=== PATIENT | female | born 1965 | race Caucasian/White ===

== ENCOUNTER 2023-11-25 18:16 | Emergency (ER) | payer OTHER, SELFPAY ==
[2023-11-25 18:18] VITALS: BP 157/104
[2023-11-25 18:55] LABS: % Basophils 0.5 % (0-2); % Eosinophils 2.3 % (0-6); % Immature Granulocytes 0.4 % (0-0.5); % Lymphocytes 22.4 % (20.5-51.1); % Monocytes 4.5 % (1.7-9.3); % Neutrophils 69.9 % (42.2-75.2); Absolute Basophils 0.1 10^3/uL (0-0.2); Absolute Eosinophils 0.3 10^3/uL (0-0.7); Absolute Immature Granulocytes 0.1 10^3/uL (0-0.05); Absolute Lymphocytes 2.7 10^3/uL (1.2-3.4); Absolute Monocytes 0.5 10^3/uL (0.1-0.6); Absolute Neutrophils 8.4 10^3/uL (1.4-6.5); Hematocrit 38.1 % (37.0-47.0); Hemoglobin 13.2 g/dL (12.0-16.0); Mean Corp Hgb Conc. 34.6 g/dL (33.0-37.0); Mean Corpuscular Hgb 29.9 pg (27.0-31.0); Mean Corpuscular Volume 86.2 fL (81.0-99.0); Mean Platelet Volume 10.3 fL (7.4-10.4); Nucleated Red Blood Cells % 0 %; Platelet Count 236 10^3/uL (130-400); Red Blood Cell Count 4.42 10^6/uL (4.20-5.40); Red Cell Dist. Width 12.3 % (11.5-14.5)
[2023-11-25 19:08] LABS: ALT (SGPT) 33 U/L (0-35); AST (SGOT) 33 U/L (14-36); Albumin 4.4 g/dl (3.5-5.0); Alkaline Phosphatase 100 U/L (38-126); Blood Urea Nitrogen 17 mg/dl (7-17); Calcium 9.8 mg/dl (8.4-10.2); Carbon Dioxide 28 mmol/L (22-30); Chloride 100 mmol/L (98-107); Glucose 215 mg/dl (70-99); Lipase 870 U/L (23-300); Potassium 5.1 mmol/L (3.5-5.1); Sodium 133 mmol/L (135-145); Total Bilirubin 0.7 mg/dl (0.2-1.3); Total Protein 7.4 g/dl (6.3-8.2); eGFR > 60.00
[2023-11-25 19:19] LABS: Troponin I < 0.012 ng/ml
[2023-11-25 20:53] VITALS: BP 124/93
[2023-11-25] MEDS: ZOFRAN 4 MG IV (21:25)
[2023-11-25] MEDS: DILAUDID 0.5 MG IV (21:26)
--- NOTE | 2023-11-25 21:37 | ED.GENMED ---
History of Present Illness
<Donavon Augustin, DO - Last Filed: 11/25/23 21:42>
General
Chief Complaint: Abdominal Pain
Source: patient, records and spouse
Exam Limitations: none
Time Seen by Provider: 11/25/23 20:49
Nursing documentation reviewed up to this point in time: agreed with
Travel History
Have you had any contact with someone who has COVID-19?: No
Do you have any symptoms of coronavirus? Fever > 100 degrees, chills, cough, shortness of breath, sore throat, loss of taste or smell, muscle aches, or headache?: No
History of Present Illness
History of Present Illness:
58-year-old female mid upper abdominal pain acute on chronic issue she states is somewhat reminiscent of her reflux and upper endoscopy has been on a PPI symptoms are worse with sitting forward and eating feels like she needs to belch, still has her
gallbladder, she has had pelvic surgery previously, no chest pain or shortness of breath
Past History
<Donavon Augustin, DO - Last Filed: 11/25/23 21:42>
Past History
ED Past Medical History: HTN, Hypercholesterolemia, IDDM and Other (Overactive bladder)
ED Past Surgical History: Gynecological (Bladder lift)
Social History
Tobacco: Non-smoker
Alcohol: None
Personal:
Living: with family
Employment: Employed
Family History
Family History: CAD (Father at 73 of [place]) and Cancer (Mom at age 71 of pancreatic cancer); Negative Early CAD or Sudden
Review of Systems
<Donavon Augustin, DO - Last Filed: 11/25/23 21:42>
Review of Systems
All Other Systems: Not applicable
Constitutional: Denies fever or fatigue
EENT: Reports no symptoms
Respiratory: Reports no symptoms
Cardiac: Reports no symptoms
ABD/GI: Reports abdominal pain
Phy Exam
<Donavon Augustin, DO - Last Filed: 11/25/23 21:42>
Physical Exam
Physical Exam:
Physical Exam
General: 50 is female looks uncomfortable
Neck: No jaundice
Heart: s1/s2 regular rate and rhythm, no murmur. equal radial pulses.
Lungs: no acute respiratory distress
Abdomen: Obese tender in the right upper abdomen
Neuro: alert and oriented. no focal neurological deficits
Skin: no rash
Psychiatric: well kept. interactive and cooperative
Extremities: no edema.
Course
<Donavon Augustin, DO - Last Filed: 11/25/23 21:42>
Orders/Labs/Results
Orders:
Orders
11/25/23 18:22
ECG [Electrocardiogram (*1)] Urgent
Reason for Study: Abdominal Pain
ECG [Electrocardiogram (*1)] Urgent
Reason for Study: Abdominal Pain
EKG- Treatment ONCE
11/25/23 18:31
Complete Blood Count/With Diff Urgent
Comprehensive Metabolic Panel Urgent
Lipase Urgent
Troponin I Urgent
11/25/23 21:09
HYDROmorphone [Dilaudid] 0.5 mg IV NOW STA
Ondansetron Injectable [Zofran] 4 mg IV NOW STA
US Abdomen Complete/Upper Urgent
Comment:
Reason For Exam: pain
11/25/23 23:14
CT Abd/pelvis W Iv Cont Urgent
Comment:
Reason For Exam: pian lipase elevated
11/25/23 23:15
Pantoprazole [Protonix IV] 40 mg IV NOW STA
Abnormal Lab Results
11/25/23
18:31
WBC 12.0 H 10^3/uL
(4.8-10.8)
Abs Immat Gran (auto) 0.1 H 10^3/uL
(0-0.05)
Absolute Neuts (auto) 8.4 H 10^3/uL
(1.4-6.5)
Sodium 133 L mmol/L
(135-145)
Glucose 215 H mg/dl
(70-99)
Lipase 870 H U/L
(23-300)
11/25/23 18:31
11/25/23 18:31
Vital Signs
Initial and Last Documented VS:
Initial Vital Signs
Temp Pulse Resp BP Pulse Ox
98.0 F 53 20 157/104 99
11/25/23 18:18 11/25/23 18:18 11/25/23 18:18 11/25/23 18:18 11/25/23 18:18
Last Documented Vital Signs
Temp Pulse Resp BP Pulse Ox
98.0 F 91 16 124/84 95
11/25/23 18:18 11/25/23 22:29 11/25/23 22:29 11/25/23 22:29 11/25/23 22:29
<KOLE Andino - Last Filed: 11/26/23 01:16>
Orders/Labs/Results
Orders:
Orders
11/25/23 18:22
ECG [Electrocardiogram (*1)] Urgent
Reason for Study: Abdominal Pain
ECG [Electrocardiogram (*1)] Urgent
Reason for Study: Abdominal Pain
EKG- Treatment ONCE
11/25/23 18:31
Complete Blood Count/With Diff Urgent
Comprehensive Metabolic Panel Urgent
Lipase Urgent
Troponin I Urgent
11/25/23 21:09
HYDROmorphone [Dilaudid] 0.5 mg IV NOW STA
Ondansetron Injectable [Zofran] 4 mg IV NOW STA
US Abdomen Complete/Upper Urgent
Comment:
Reason For Exam: pain
11/25/23 23:14
CT Abd/pelvis W Iv Cont Urgent
Comment:
Reason For Exam: pian lipase elevated
11/25/23 23:15
Pantoprazole [Protonix IV] 40 mg IV NOW STA
Abnormal Lab Results
11/25/23
18:31
WBC 12.0 H 10^3/uL
(4.8-10.8)
Abs Immat Gran (auto) 0.1 H 10^3/uL
(0-0.05)
Absolute Neuts (auto) 8.4 H 10^3/uL
(1.4-6.5)
Sodium 133 L mmol/L
(135-145)
Glucose 215 H mg/dl
(70-99)
Lipase 870 H U/L
(23-300)
11/25/23 18:31
11/25/23 18:31
Vital Signs
Initial and Last Documented VS:
Initial Vital Signs
Temp Pulse Resp BP Pulse Ox
98.0 F 53 20 157/104 99
11/25/23 18:18 11/25/23 18:18 11/25/23 18:18 11/25/23 18:18 11/25/23 18:18
Last Documented Vital Signs
Temp Pulse Resp BP Pulse Ox
98.0 F 91 16 124/84 95
11/25/23 18:18 11/25/23 22:29 11/25/23 22:29 11/25/23 22:29 11/25/23 22:29
<Donavon Augustin, DO - Last Filed: 11/25/23 21:42>
MDM/Problems Addressed
Differential Diagnosis Includes:
Biliary colic GERD pancreatitis colitis nonspecific abdominal pain choledocholithiasis
MDM/Problems Addressed:
Obesity
Chronic conditions affecting care:
Obesity
Acute Exacerbation and/or Progression of Chronic Illness:
Obesity
<KOLE Andino - Last Filed: 11/26/23 01:16>
MDM/Problems Addressed
MDM/Problems Addressed:
Obesity
Into see patient. Explained that her CT was negative for any acute process. There was some air in the bladder noted and asked patient for a Urine. Patient stated that she just urinated and that she did take a Cipro this morning. Explained to patient
that this could be early pancreatitis or Gastritis. Offered patient admission again and patient states that she wants to go home. Will give patient a prescription for Carafate and have patient continue with her Omeprazole. Patient to return with
increased pain or any other concerns.
<Donavon Augustin DO - Last Filed: 11/25/23 21:42>
*Radiology
Radiology exam reviewed: preliminary read by ED provider
*Pulse Oximetry
Patient hypoxic: no
*EKG
Interpreted by ED Provider?: Yes
Interpretation: normal
Comparison EKG: no comparison EKG present
Heart Rate: 78
Rate: normal
Ischemia: no ischemia
<KOLE Andino - Last Filed: 11/26/23 01:16>
*Radiology
Radiology exam reviewed: radiology read reviewed (CT night hawk- NO definite cause for upper abd pain identified. NO evidence of bowel obstruction. Mobile colon with the cecum noted in the left lower quadrant. Status post cholecystectomy. A few foci
of gas are seen within the urinary bladder, if there is no history of catherterization consider ) and other (CT cont- consider correlation for possible infection. )
*Critical Care Note
Total Time (30-74mins, 75-104mins- exclusive of procedures): Not Applicable
ED Attending Note
<Donavon Augustin DO - Last Filed: 11/25/23 21:42>
-
Portions of this chart may have been created with voice recognition software.� Occasional wrong word or��sound alike� substitutions may have occurred due to the inherent limitations of voice recognition software.
Discharge Plan
Departure
Patient Disposition: Home (Routine Discharge)
Date of Disposition: 11/25/23
Time of Disposition: 23:27
Patient with high blood pressure during this ER visit?: No
Condition: Good
Covid-19: Not Applicable
Discharge Problem:
Abdominal pain, Gastritis, Early pancreatitis
Instructions: Gastritis (DC), Abdominal Pain
Prescriptions:
New
sucralfate [Carafate] 1 gram tablet
1 g PO ACHS Qty: 40 0RF
Rx Instructions:
30min-1hour before meals and HS. May dissolve in 10ml of water
No Action
simvastatin 10 MG tablet
10 mg PO HS
metformin 1,000 MG tablet
1,000 mg PO BID
red yeast rice 600 MG tablet
1,200 mg PO DAILY
Milk Thistle 250 MG
2 tab PO DAILY
Triple [place] Complex 3-6-9
2 cap PO DAILY
insulin NPH isoph U-100 human [Novolin N NPH U-100 Insulin] 1,000 UNITS/10 ML suspension
14 unit SQ HS
aspirin 81 MG tablet,delayed release (DR/EC)
81 mg PO DAILY
lisinopril 10 MG tablet
10 mg PO DAILY
Patient Comments:
Takes at 1030
magnesium 200 MG tablet
400 mg PO BID
gfrduwqapaz-dlc-vzypdhasv-vitC [Glucosamine Complex-MSM] 1 EACH capsule
2 cap PO DAILY
cinnamon bark [Cinnamon] 500 MG capsule
1,000 mg PO TID
cholecalciferol (vitamin D3) [Vitamin D3] 2,000 UNIT capsule
2,000 unit PO DAILY
Diabetic Multivitamin
1 tab PO DAILY
Iron
65 mg PO DAILY
Potassium
550 mg PO DAILY
amoxicillin 875 MG tablet
875 mg PO BID Qty: 20 0RF
oxycodone-acetaminophen 5 MG/325 MG tablet
2 tab PO Q6HPRN PRN (Reason: severe pain) Qty: 30 0RF
omeprazole 20 MG tablet,delayed release (DR/EC)
20 mg PO DAILY Qty: 20 0RF
sucralfate 1 GM/10 ML suspension
1 gm PO QID Qty: 10 0RF
Referrals:
Tenzin Rodriguez, [Family Provider] - Call in 1-3 days for appt
Activity Restrictions/Additional Instructions:
As discussed, your blood work shows that our white blood cell count is slightly elevated. Your Sodium is slightly low and your blood sugar is elevated. You also have an elevation of your Lipase which is concerning for pancreatitis. Your CT was
negative for any acute process. This may be a Gastritis. Please continue with your Omeprazole. You have also been given a prescription for Carafate. Please take this 30min to 1 hour before meals and again at bedtime for the next 10 days. Follow up
with the family doctor. IF YOU HAVE INCREASED OR CHANGING PAIN, OR YOU HAVE ANY OTHER CONCERNS PLEASE RETURN TO THE EMERGENCY ROOM
Interventions
Interventions:
*Risk Screen - Suicide Last Done: 11/25/23 18:18
*General Assessment Last Done: 11/25/23 18:18
*Neglect/Abuse Screening Last Done: 11/25/23 18:18
*ED COVID-19 Vaccine History Last Done: 11/25/23 20:51
IM-Gfupyr-Xkyytebvsj Assessment Last Done: 11/25/23 20:51
[2023-11-25 22:29] VITALS: BP 124/84
[2023-11-25] MEDS: PROTONIX IV 40 MG IV (23:22)
[2023-11-26 01:00] VITALS: BP 133/88
[2023-11-26] MEDS: CARAFATE SUSPENSION 1 GM PO (01:19)
== END 2023-11-26 01:24 | disposition home or self-care (01) ==
LOC: EMR 18:16
PROVIDERS: Emergency Medicine; EMERGENCY PHYSICIAN Emergency Medicine; FAMILY PHYSICIAN Family Medicine
DX: R10.9 Unspecified abdominal pain (principal); K29.70 Gastritis, unspecified, without bleeding; E66.9 Obesity, unspecified; Z90.49 Acquired absence of other specified parts of digestive tract
CPT/HCPCS: 99285; 96374; 96375 ×2; 74177; 76700; 80053; 83690; 84484; 85025; 93005; Q9967

== ENCOUNTER 2023-11-27 17:37 | Emergency (ER) | payer OTHER, SELFPAY ==
[2023-11-27 17:49] VITALS: BP 130/75
[2023-11-27 18:05] LABS: % Basophils 0.7 % (0-2); % Eosinophils 1.9 % (0-6); % Immature Granulocytes 0.2 % (0-0.5); % Lymphocytes 30.1 % (20.5-51.1); % Monocytes 4.1 % (1.7-9.3); Absolute Basophils 0.1 10^3/uL (0-0.2); Absolute Eosinophils 0.2 10^3/uL (0-0.7); Absolute Lymphocytes 2.9 10^3/uL (1.2-3.4); Absolute Monocytes 0.4 10^3/uL (0.1-0.6); Hematocrit 37.4 % (37.0-47.0); Hemoglobin 12.9 g/dL (12.0-16.0); Mean Corp Hgb Conc. 34.5 g/dL (33.0-37.0); Mean Corpuscular Hgb 30.2 pg (27.0-31.0); Mean Corpuscular Volume 87.6 fL (81.0-99.0); Mean Platelet Volume 10.1 fL (7.4-10.4); Nucleated Red Blood Cells % 0 %; Platelet Count 235 10^3/uL (130-400); Red Blood Cell Count 4.27 10^6/uL (4.20-5.40); Red Cell Dist. Width 12.3 % (11.5-14.5); White Blood Cell Count 9.5 10^3/uL (4.8-10.8)
[2023-11-27 18:55] LABS: ALT (SGPT) 30 U/L (0-35); AST (SGOT) 34 U/L (14-36); Albumin 4.2 g/dl (3.5-5.0); Alkaline Phosphatase 103 U/L (38-126); Blood Urea Nitrogen 18 mg/dl (7-17); Calcium 9.6 mg/dl (8.4-10.2); Carbon Dioxide 24 mmol/L (22-30); Chloride 105 mmol/L (98-107); Glucose 108 mg/dl (70-99); Lipase 708 U/L (23-300); Potassium 4.7 mmol/L (3.5-5.1); Sodium 136 mmol/L (135-145); Total Bilirubin 0.6 mg/dl (0.2-1.3); Total Protein 7.3 g/dl (6.3-8.2); eGFR > 60.00
[2023-11-27 21:04] VITALS: BP 123/81
--- NOTE | 2023-11-27 21:27 | ED.GENMED ---
History of Present Illness
General
Chief Complaint: Abdominal Pain
Source: patient
Exam Limitations: none
Time Seen by Provider: 11/27/23 21:00
Nursing documentation reviewed up to this point in time: agreed with
Travel History
Have you had any contact with someone who has COVID-19?: No
Do you have any symptoms of coronavirus? Fever > 100 degrees, chills, cough, shortness of breath, sore throat, loss of taste or smell, muscle aches, or headache?: No
History of Present Illness
History of Present Illness:
58-year-old female presents emergency department complaining of epigastric pain for the past 4 days. She had an elevated lipase when she was seen in the ED on 11/25/2023. She denies pain at this time, but it hurts when she bends down.
Past History
Past History
ED Past Medical History: HTN, Hypercholesterolemia, IDDM and Other (Overactive bladder)
ED Past Surgical History: Gynecological (Bladder lift)
Social History
Tobacco: Non-smoker
Alcohol: None
Personal:
Living: with family
Employment: Employed
Family History
Family History: CAD (Father at 73 of [place]) and Cancer (Mom at age 71 of pancreatic cancer); Negative Early CAD or Sudden
Review of Systems
Review of Systems
Allergies reviewed?: Yes
All Other Systems: Not applicable
Constitutional: Reports no symptoms
EENT: Reports no symptoms
Respiratory: Reports no symptoms
Cardiac: Reports no symptoms
ABD/GI: Reports abdominal pain
: Reports no symptoms
Musculoskeletal: Reports no symptoms
Skin: Reports no symptoms
Neurological: Reports no symptoms
Endocrine: Reports no symptoms
Hematologic/Lymphatic: Reports no symptoms
Psychiatric: Reports no symptoms
Phy Exam
Physical Exam
Physical Exam:
Physical Exam
General: no apparent distress, not acutely ill
Neck: supple. no meningeal signs. normal posterior pharynx
Heart: s1/s2 regular rate and rhythm, no murmur. equal radial
pulses.
HEENT: Pupils equal round reactive to light, EOMI
Lungs: no acute respiratory distress. clear bilaterally
Abdomen: normal bowel sounds. not tender. no CVAT
Neuro: alert and oriented. no focal neurological deficits cranial nerves II through XII intact
Skin: no rash
Psychiatric: well kept. interactive and cooperative
Extremities: no edema. no calf tenderness. negative homans. good distal pulses
Course
Orders/Labs/Results
Orders:
Orders
11/27/23 17:58
Complete Blood Count/With Diff Urgent
Comprehensive Metabolic Panel Urgent
Lipase Urgent
Abnormal Lab Results
11/27/23
17:58
BUN 18 H mg/dl
(7-17)
Glucose 108 H mg/dl
(70-99)
Lipase 708 H U/L
(23-300)
11/27/23 17:58
11/27/23 17:58
Vital Signs
Initial and Last Documented VS:
Initial Vital Signs
Temp Pulse Resp BP Pulse Ox
97.8 F 93 18 130/75 98
11/27/23 17:49 11/27/23 17:49 11/27/23 17:49 11/27/23 17:49 11/27/23 17:49
Last Documented Vital Signs
Temp Pulse Resp BP Pulse Ox
97.8 F 83 14 123/81 97
11/27/23 17:49 11/27/23 21:04 11/27/23 21:04 11/27/23 21:04 11/27/23 21:04
MDM/Problems Addressed
Differential Diagnosis Includes:
Pancreatitis, gastroenteritis
MDM/Problems Addressed:
58-year-old female with epigastric pain and mild elevation of lipase but decreasing. Abdomen exam benign. Patient stable for discharge.
Chronic conditions affecting care: DM and HTN
Acute Exacerbation and/or Progression of Chronic Illness: DM and HTN
*Pulse Oximetry
Patient hypoxic: no
*EKG
Interpreted by ED Provider?: NA
*Nocturnist Physician Interpretation
Rate: Nocturnist Physician- N/A
*Critical Care Note
Total Time (30-74mins, 75-104mins- exclusive of procedures): Not Applicable
Patient Management
Social determinants of health affecting care: Living situation and Strong social support
Escalation/DeEscalation of care consider admission/obs:
Admit not indicated
ED Attending Note
-
Portions of this chart may have been created with voice recognition software.� Occasional wrong word or��sound alike� substitutions may have occurred due to the inherent limitations of voice recognition software.
Discharge Plan
Departure
Patient Disposition: Home (Routine Discharge)
Date of Disposition: 11/27/23
Time of Disposition: 21:38
Patient with high blood pressure during this ER visit?: Yes
Condition: Good
Discharge Problem:
Abdominal pain
Instructions: Lipase Blood Test, Abdominal Pain, BLOOD PRESSURE
Prescriptions:
No Action
simvastatin 10 MG tablet
10 mg PO HS
metformin 1,000 MG tablet
1,000 mg PO BID
red yeast rice 600 MG tablet
1,200 mg PO DAILY
Milk Thistle 250 MG
2 tab PO DAILY
Triple [place] Complex 3-6-9
2 cap PO DAILY
insulin NPH isoph U-100 human [Novolin N NPH U-100 Insulin] 1,000 UNITS/10 ML suspension
14 unit SQ HS
aspirin 81 MG tablet,delayed release (DR/EC)
81 mg PO DAILY
lisinopril 10 MG tablet
10 mg PO DAILY
Patient Comments:
Takes at 1030
magnesium 200 MG tablet
400 mg PO BID
vvtrguktnry-pyj-fbulycrqf-vitC [Glucosamine Complex-MSM] 1 EACH capsule
2 cap PO DAILY
cinnamon bark [Cinnamon] 500 MG capsule
1,000 mg PO TID
cholecalciferol (vitamin D3) [Vitamin D3] 2,000 UNIT capsule
2,000 unit PO DAILY
Diabetic Multivitamin
1 tab PO DAILY
Iron
65 mg PO DAILY
Potassium
550 mg PO DAILY
amoxicillin 875 MG tablet
875 mg PO BID Qty: 20 0RF
oxycodone-acetaminophen 5 MG/325 MG tablet
2 tab PO Q6HPRN PRN (Reason: severe pain) Qty: 30 0RF
omeprazole 20 MG tablet,delayed release (DR/EC)
20 mg PO DAILY Qty: 20 0RF
sucralfate 1 GM/10 ML suspension
1 gm PO QID Qty: 10 0RF
sucralfate [Carafate] 1 gram tablet
1 g PO ACHS Qty: 40 0RF
Rx Instructions:
30min-1hour before meals and HS. May dissolve in 10ml of water
Referrals:
Tenzin Rodriguez DO [Family Provider] -
Rosa Elena Danielle MD [Active] - Call in 1-3 days for appt
Interventions
Interventions:
*Risk Screen - Suicide Last Done: 11/27/23 20:59
*General Assessment Last Done: 11/27/23 17:49
*Neglect/Abuse Screening Last Done: 11/27/23 20:59
*ED COVID-19 Vaccine History Last Done: 11/27/23 17:49
QK-Jvoftf-Oaroejgptc Assessment Last Done: 11/27/23 21:00
[2023-11-27 21:47] VITALS: BP 123/81
== END 2023-11-27 21:54 | disposition home or self-care (01) ==
LOC: EMR 17:37
PROVIDERS: Emergency Medicine; EMERGENCY PHYSICIAN Emergency Medicine; FAMILY PHYSICIAN Family Medicine
DX: R10.9 Unspecified abdominal pain (principal); R74.8 Abnormal levels of other serum enzymes; I10 Essential (primary) hypertension; E11.9 Type 2 diabetes mellitus without complications
CPT/HCPCS: 99283; 80053; 83690; 85025

== ENCOUNTER → 2025-01-12 16:10 | Outpatient (REF) | payer OTHER, SELFPAY | LOC: HWWDC 16:10 | PROVIDERS: ATTENDING PHYSICIAN Family Medicine | DX: Z12.31 Encounter for screening mammogram for malignant neoplasm of breast (principal) | CPT/HCPCS: 77063; 77067 ==